=== PATIENT | male | born 1975 | race Caucasian/White ===

== ENCOUNTER 2019-02-08 20:52 | Emergency (ER) | payer OTHER ==
--- NOTE | 2019-02-08 21:21 | PDOC ---
Rapid Medical Evaluation Chief Complaint: Irregular Heart Beat Time Seen by Provider: 02/08/19 21:17 Medical Evaluation: 02/08/19 21:17 43 year old [employer] [employer] male with " flutter" in chest while at work. denies chest pain PE: patient alert ox3. irregular rate, breath sounds clear A: palpitation P; labs EKG chest xray patient to the ER for further management of care. 02/08/19 21:20 Discharge Disposition - Diagnosis Palpitations - Referrals - Patient Instructions - Post Discharge Activity
[2019-02-08 21:23] VITALS: TEMP 98.5; BMI 31.1
--- NOTE | 2019-02-08 22:09 | PDOC ---
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 He denies nausea, vomiting, presyncope, chest pain, or other symptoms and he has never had these "flutters" before. He denies any illicit drug use and actually ran on the treadmill this AM. He does drink 5- 6 cups of coffee daily and has had two restless nights in the context of very expensive home renovations currently taking place. He has never had a stress test but did have an echo performed 5 years prior that he believes was normal. 02/08/19 22:41 Past History - Past Medical History Allergies/Adverse Reactions: Allergies Allergy/AdvReac Type Severity Reaction Status Date / Time No Known Allergies Allergy Verified 02/08/19 21:17 COPD: No Diabetes: Yes HTN: Yes - Suicide/Smoking/Psychosocial Hx Smoking History: Never smoked Have you smoked in the past 12 months: No Information on smoking cessation initiated: No Hx Alcohol Use: No Drug/Substance Use Hx: No Review of Systems - Review of Systems Constitutional: No: Chills, Diaphoresis, Fever, Loss of Appetite HEENTM: No: Blurred Vision, Tearing, Ear Pain, Tinnitus Respiratory: No: Cough, Shortness of Breath Cardiac (ROS): Yes: Irregular Heart Rate, Palpitations. No: Chest Pain, Edema, Lightheadedness, Syncope, Chest Tightness ABD/GI: No: Diarrhea, Nausea, Vomiting : No: Discharge, Frequency Integumentary: No: Lesions, Rash Neurological: No: Headache, Numbness, Paresthesia Psychiatric: No: Anxiety, Depression *Physical Exam - Vital Signs Last Vital Signs Temp Pulse Resp BP Pulse Ox 98.5 F 53 L 16 178/101 H 100 02/08/19 21:18 02/08/19 21:18 02/08/19 21:18 02/08/19 21:18 02/08/19 21:18 - Physical Exam General Appearance: Yes: Nourished, Appropriately Dressed. No: Apparent Distress HEENT: positive: EOMI, JOAQUIN, Normal ENT Inspection, Normal Voice Neck: positive: Trachea midline, Normal Thyroid, Supple. negative: Tender, Rigid Respiratory/Chest: positive: Lungs Clear, Normal Breath Sounds. negative: Chest Tender, Respiratory Distress, Accessory Muscle Use Cardiovascular: positive: Regular Rhythm (with occassional PVCs), Tachycardia. negative: Regular Rate Gastrointestinal/Abdominal: positive: Normal Bowel Sounds, Flat, Soft. negative : Tender Lymphatic: negative: Adenopathy, Tenderness Musculoskeletal: positive: Normal Inspection. negative: Decreased Range of Motion Extremity: positive: Normal Capillary Refill, Normal Inspection, Normal Range of Motion. negative: Tender Integumentary: positive: Normal Color, Dry, Warm Neurologic: positive: Fully Oriented, Alert, Normal Mood/Affect, Normal Response , Motor Strength 02/18 ED Treatment Course - LABORATORY CBC & Chemistry Diagram: 02/08/19 21:48 02/08/19 21:48 Medical Decision Making - Medical Decision Making 43 year old male with PMH of HTN presenting with "flutters" and EKG demonstrating PVCs (rate 101, W[place] 130, QRS 106, QTc 459, normal axis, and no signs of ischemia.). 02/08/19 22:56 Labs WNL and patient symptomatic during his stay here after 1L NS. Will recommend decreasing caffeine load and ensuring proper sleep hygiene. Will also be DC'd with cards follow up and return precautions. 02/08/19 23:52 *DC/Admit/Observation/Transfer Diagnosis at time of Disposition: Palpitations - Discharge Dispostion Disposition: HOME Condition at time of disposition: Improved Decision to Admit order: No - Referrals Referrals: ON STAFF,NOT [Primary Care Provider] - Cordelia Bellamy MD [Staff Physician] - - Patient Instructions Printed Discharge Instructions: DI for Palpitations Additional Instructions: Pleas decrease your caffeine intake and try to get a good night's sleep every night. Please see a safe and vault service mechanic. If you do not have one, please follow up with Dr. Milner on this sheet. You will have to likely have a more of a thorough examination of your heart. Please return to the ED if you have new or worsening symptoms. - Post Discharge Activity
[2019-02-08] MEDS ORDERED: SODIUM CHLORIDE 0.9% 500 ML INFUS.BAG IV ONE (22:19)
[2019-02-08 22:27] LABS: BASO % 0.3 % (0-2.0); EOS % 0.6 % (0-4.5); HEMATOCRIT 47.4 % (35.4-49); HEMOGLOBIN 16.4 GM/dL (11.7-16.9); LYMPH % 24.2 % (8-40); MCH 30.2 pg (25.7-33.7); MCHC 34.6 g/dl (32.0-35.9); MEAN CELL VOLUME 87.3 fl (80-96); MEAN PLT VOLUME 9.1 fl (7.5-11.1); MONO % 7.9 % (3.8-10.2); PLATELET COUNT 227 K/MM3 (134-434); RBC 5.43 M/mm3 (4.00-5.60); RDW 12.7 % (11.9-15.9); WHITE BLOOD COUNT 6.8 K/mm3 (4.0-10.0)
[2019-02-08 22:41] LABS: INR 0.92 (0.83-1.09); PROTHROMBIN TIME (PATIENT) 10.9 SEC (9.7-13.0)
[2019-02-08 23:13] LABS: ALBUMIN 4.1 g/dl (3.4-5.0); ALK PHOS 54 U/L (45-117); ANION GAP 7 MMOL/L (8-16); BILIRUBIN,TOTAL 0.6 mg/dL (0.2-1); BLOOD UREA NITROGEN 17 mg/dL (7-18); CALCIUM 9.5 mg/dL (8.5-10.1); CHLORIDE 100 mmol/L (98-107); CO2 31 mmol/L (21-32); CREATININE 1.2 mg/dL (0.55-1.3); GLUCOSE,RANDOM 182 mg/dL (74-106); MAGNESIUM 2.4 mg/dL (1.8-2.4); PHOSPHOROUS 3.9 mg/dL (2.5-4.9); POTASSIUM 4.3 mmol/L (3.5-5.1); SGOT/AST 37 U/L (15-37); SGPT/ALT 33 U/L (13-61); SODIUM 139 mmol/L (136-145); TOT PROT 7.2 g/dl (6.4-8.2)
--- NOTE | 2019-02-08 23:16 | PDOC ---
Documentation entered by Niru Rondon SCRIBE, acting as scribe for Joaquim Gale MD. Joaquim Gale MD: This documentation has been prepared by the Nela elmore Adrianna, SCRIBE, under my direction and personally reviewed by me in its entirety. I confirm that the documentation accurately reflects all work, treatment, procedures, and medical decision making performed by me. Attending Attestation - Resident Resident Name: Obed Billy - ED Attending Attestation I have performed the following: I have examined & evaluated the patient, The case was reviewed & discussed with the resident, I agree w/resident's findings & plan, Exceptions are as noted - HPI HPI: The patient is a 43 year old male, with a significant PMH of HTN (followed by his PCP), who presents to the emergency department today complaining of palpitations for a few hours. 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 He endorses drinking 5-6 cups of coffee daily. Patient states he has been working on a home renovation, which has increased his stress and anxiety recently, while also minimizing his sleep the past 2-3 nights. He denies any history of similar symptoms, and denies having a stress test done in the past. Patient notes he has had an ECHO 5 years ago, which was normal at the time. The patient denies chest pain, shortness of breath, headache and dizziness. Denies fever, chills, nausea, vomit, diarrhea and constipation. Denies dysuria, frequency, urgency and hematuria. Allergies: NKA Past surgical history: None reported Social history: No reported PCP: Not on Staff 02/08/19 22:56 - Physicial Exam PE: 02/09/19 01:27 Agree with detailed exam as documented by resident - Medical Decision Making 02/09/19 01:27 Palpitations in context of sinus rhythm with PVCs on ekg Consider sequelae of environmental/stimulant use, consider thyroid or electrolyte derangements, less likely acs, arrythmia f/u labs 02/09/19 01:31 No significant derangements on labs Pt asymptomatic here DC with cards follow up for OP eval
[2019-02-09 00:03] VITALS: BP 157/77; PULSE 90
--- NOTE | 2019-02-09 11:23 | EKG ---
Test Reason : Blood Pressure : / mmHG Vent. Rate : 101 BPM Atrial Rate : 101 BPM P-R Int : 130 ms QRS Dur : 106 ms QT Int : 354 ms P-R-T Axes : 049 073 -14 degrees QTc Int : 459 ms SINUS TACHYCARDIA WITH FREQUENT PREMATURE VENTRICULAR COMPLEXES T WAVE ABNORMALITY, CONSIDER INFERIOR ISCHEMIA ABNORMAL ECG Confirmed by MARK ALARCON MD ([id number]) on 02/09/2019 11:23:13 AM Referred By: Confirmed By:MARK ALARCON MD
== END 2019-02-09 00:14 | disposition home or self-care (01) ==
LOC: JER 20:52
DX: R00.2 Palpitations (principal); I10 Essential (primary) hypertension
CPT/HCPCS: 36415; 80053; 82550; 82553; 83735; 84100; 84439; 84443; 84484; 85025; 85610; 93005; 93010; 99284-25